=== PATIENT | female | born 1960 ===

== ENCOUNTER 2017-04-05 19:05 | Emergency (ER) | payer MEDICAID, OTHER ==
[2017-04-05 19:06] VITALS: BMI 22.3
[2017-04-05 19:18] VITALS: BP 114/62; PULSE 86; RESP 19; TEMP 97.6; O2SAT 95
--- NOTE | 2017-04-05 19:52 | ED PDOC ---
HPI: Psych/Substance Abuse Time Seen by Provider: 04/05/17 19:21 Chief Complaint (Nursing): Anxiety Chief Complaint (Provider): withdrawal from heroin History/Exam Limitations: no limitations Onset/Duration Of Symptoms: Gradual (1 week) Current Symptoms Are (Timing): Still Present Additional Complaint(s): Pt reports regular daily use of heroin and is requesting detox. She has presented to [facility] earlier and placed on a "waiting list" but she says she needs detox right away. She reports that she can't sleep due to the withdrawal symptoms. She also reports that she has some alcohol withdrawal as well. She denies any suicidal or homicidal ideations. She denies any hallucinations. Past Medical History Reviewed: Historical Data, Nursing Documentation, Vital Signs Vital Signs: Last Vital Signs Temp 97.6 F 04/05/17 19:14 Pulse 86 04/05/17 19:14 Resp 19 04/05/17 19:14 BP 114/62 04/05/17 19:14 Pulse Ox 95 04/05/17 19:14 - Medical History PMH: Anxiety, Asthma, Schizophrenia Denies: HIV, HTN, Chronic Kidney Disease, Seizures, Sexually Transmitted Disease - Surgical History Surgical History: Appendectomy - Family History Family History: States: Unknown Family Hx - Social History Current smoker - smoking cessation education provided: Yes Alcohol: > 2 Drinks/Day Drugs: Opiates - Immunization History Hx Tetanus Toxoid Vaccination: No Hx Influenza Vaccination: No Hx Pneumococcal Vaccination: No - Home Medications Home Medications: Ambulatory Orders Medication Instructions Recorded hydrOXYzine Pamoate [Vistaril] 25 mg PO HS PRN #5 cap 04/05/17 - Allergies Allergies/Adverse Reactions: Allergies Allergy/AdvReac Type Severity Reaction Status Date / Time No Known Allergies Allergy Verified 04/06/17 10:13 Review of Systems ROS Statement: Except As Marked, All Systems Reviewed And Found Negative Gastrointestinal: Negative for: Nausea, Vomiting, Abdominal Pain, Diarrhea Neurological: Negative for: Weakness, Numbness, Headache Psych: Positive for: Anxiety, Withdrawal. Negative for: Depression, Psychosis, Suicidal ideation Physical Exam - Reviewed Nursing Documentation Reviewed: Yes Vital Signs Reviewed: Yes - Physical Exam Appears: Positive for: In Acute Distress (unkempt, very anxious) Head Exam: Positive for: ATRAUMATIC, NORMOCEPHALIC Skin: Positive for: Warm, Dry Eye Exam: Positive for: EOMI, PERRL ENT: Positive for: Other (poor dentition, dry muc memb) Neck: Positive for: Painless ROM, Supple Cardiovascular/Chest: Positive for: Regular Rate, Rhythm. Negative for: Tachycardia Respiratory: Positive for: Normal Breath Sounds. Negative for: Accessory Muscle Use, Respiratory Distress Gastrointestinal/Abdominal: Positive for: Soft. Negative for: Tenderness Back: Positive for: Normal Inspection. Negative for: Decreased ROM Extremity: Negative for: Pedal Edema, Deformity Lymphatic: Negative for: Adenopathy Neurologic/Psych: Positive for: Alert, Oriented (x3), Mood/Affect (anxious). Negative for: Motor/Sensory Deficits - ECG O2 Sat by Pulse Oximetry: 95 - Progress ED Course And Treament: Pt with insmonia reportedly due to withdrawal. Physical exam does not reveal any emergent withdrawal symptoms requiring treatment in ER. Detox resources given the CW and advised to continue search for openings. Disposition - Clinical Impression Clinical Impression: Opiate abuse, continuous, Alcohol abuse Counseled Patient/Family Regarding: Studies Performed, Diagnosis - Disposition Disposition: Routine/Home Disposition Time: 19:50 Condition: STABLE Additional Instructions: FOLLOW UP WITH [facility]OX [facility] FOR FURTHER MANAGEMENT Prescriptions: hydrOXYzine Pamoate [Vistaril] 25 mg PO HS PRN #5 cap PRN Reason: Insomnia Instructions: Narcotic Abuse (ED), Abuse of Alcohol (ED), Insomnia (ED)
== END 2017-04-05 20:00 | disposition home or self-care (01) ==
LOC: H.ER 19:05
DX: F11.10 Opioid abuse, uncomplicated (principal); F10.10 Alcohol abuse, uncomplicated; F20.9 Schizophrenia, unspecified; F41.9 Anxiety disorder, unspecified; J45.909 Unspecified asthma, uncomplicated